=== PATIENT | female | born 1965 | race Caucasian/White ===

== ENCOUNTER → 2024-06-06 14:51 | Outpatient (REF) | payer OTHER, SELFPAY | LOC: EMG 14:51 | PROVIDERS: ATTENDING PHYSICIAN Nurse Practitioner Family | DX: R20.0 Anesthesia of skin (principal) | CPT/HCPCS: 95886; 95909 ==

== ENCOUNTER → 2024-07-02 14:49 | Outpatient (REF) | payer OTHER, SELFPAY | LOC: WDC 14:49 | PROVIDERS: ATTENDING PHYSICIAN Nurse Practitioner Family | DX: Z12.31 Encounter for screening mammogram for malignant neoplasm of breast (principal); D30.02 Benign neoplasm of left kidney | CPT/HCPCS: 76775; 77063; 77067 ==

== ENCOUNTER 2024-07-05 11:27 | Emergency (ER) | payer OTHER, SELFPAY ==
[2024-07-05 11:27] VITALS: BMI 31.8
[2024-07-05 11:29] VITALS: BP 104/65
--- NOTE | 2024-07-05 12:19 | ED.GENMED ---
History of Present Illness
General
Chief Complaint: Abdominal Pain
Source: patient
Exam Limitations: none
Time Seen by Provider: 07/05/24 11:36
Nursing documentation reviewed up to this point in time: agreed with
History of Present Illness
History of Present Illness:
59 y/o F with h/o divertic (uncomplicated)
chronic bloody stool/hemorrhoids
here with LLQ pain that started yesterday gradually worsening throughout the day with bloating, distention and fever (subjective)
tried pepto bismol and clear liquids
nauseated no appetite
slept well
feels fatigued this morning and still has pain LLQ
went to PCP and while in the office she had tenderness in LLQ as well as RUQ and was sent in for w/u
we received message from pcp
no tylenol today
denies vomiting, diarrhea
did have some red blood with BM yesterday but this is typical
no known sick contacts
Past History
Past History
ED Past Medical History: Hypercholesterolemia, Hypothyroidism and Other (diverticulitis)
ED Past Surgical History: None
Social History
Tobacco: Non-smoker
Personal:
Living: with family
Employment: Employed
Course
Orders/Labs/Results
Orders:
Orders
07/05/24 12:15
Urinalysis Reflex To Culture Urgent
07/05/24 12:16
CT Abd/Pel (IV only)-DH only Urgent
Comment:
Reason For Exam: LLQ pain, h/od viertc; fever, bloating RUQ pain
0.9% Sodium Chloride 1000 ml [Nss] 1,000 ml IV BOLUS
Acetaminophen [Tylenol] 650 mg PO NOW STA
Ketorolac [Toradol] 30 mg IV NOW STA
07/05/24 12:25
Complete Blood Count/With Diff Urgent
Comprehensive Metabolic Panel Urgent
Lactic Acid Urgent
Lipase Urgent
07/05/24 14:14
Ciprofloxacin HCl [Cipro] 500 mg PO NOW STA
MetroNIDAZOLE [Flagyl] 500 mg PO NOW STA
07/05/24 14:21
0.9% Sodium Chloride 1000 ml [Nss] 1,000 ml IV BOLUS
Abnormal Lab Results
07/05/24
12:25
RBC 3.87 L 10^6/uL
(4.20-5.40)
Hct 35.4 L %
(37.0-47.0)
Absolute Lymphs (auto) 0.8 L 10^3/uL
(1.2-3.4)
Neutrophils % 80.1 H %
(42.2-75.2)
Lymphocytes % 10.6 L %
(20.5-51.1)
Glucose 113 H mg/dl
(70-99)
Lactic Acid 0.6 L mmol/L
(0.7-2.0)
Total Bilirubin 1.8 H mg/dl
(0.2-1.3)
07/05/24 12:25
07/05/24 12:25
Vital Signs
Initial and Last Documented VS:
Initial Vital Signs
Temp Pulse Resp BP Pulse Ox
37.0 C 88 18 104/65 98
07/05/24 11:29 07/05/24 11:29 07/05/24 11:29 07/05/24 11:29 07/05/24 11:29
Last Documented Vital Signs
Temp Pulse Resp BP Pulse Ox
36.6 C 75 16 92/59 97
07/05/24 14:18 07/05/24 14:18 07/05/24 13:32 07/05/24 14:18 07/05/24 14:18
MDM/Problems Addressed
Differential Diagnosis Includes:
DIVERTIC, SBO, ILEUS, COLITIS
MDM/Problems Addressed:
59 y/o F h/o diveritc
LLQ pain since yesterday, bloating, nausa, chills
does have chronic blood in stool but no more yesterday than normal due to hemorrhids
sent by pcp for LLQ tendrness and RUQ int he office
pt says she was unaware she had RUQ pain
temp 100.3 hhere
no guarding
soft abdomen
no RUQ tendenress for me
labs reassuing, normal wbc, neg lactic
bun normal
ct shows acute uncomplicated divertic
probably had some gas or something in RUQ earlier that was uncomfortable
bp is soft 90s down from 100s
pt normally lives in 100s
will give 1 more liter of IVF and reassess
if stable, d/c home oral abx
ED Attending Note
-
Portions of this chart may have been created with voice recognition software.� Occasional wrong word or��sound alike� substitutions may have occurred due to the inherent limitations of voice recognition software.
Discharge Plan
Departure
Patient Disposition: Home (Routine Discharge)
Date of Disposition: 07/05/24
Time of Disposition: 14:15
Patient with high blood pressure during this ER visit?: No
Condition: Fair
Covid-19: Not Applicable
Discharge Problem:
Diverticulitis
Instructions: Diverticulitis (DC)
Prescriptions:
New
ciprofloxacin HCl 500 mg tablet
500 mg PO BID Qty: 14 0RF
metronidazole 500 mg tablet
500 mg PO TID Qty: 21 0RF
No Action
levothyroxine 125 MCG tablet
125 mcg PO DAILY
escitalopram oxalate 10 MG tablet
1.5 tab PO DAILY
rosuvastatin [Crestor] 40 MG tablet
40 mg PO HS
bupropion HCl 300 MG tablet extended release 24 hr
300 mg PO DAILY
metronidazole 500 MG tablet
500 mg PO TID Qty: 21 0RF
levofloxacin 500 MG tablet
500 mg PO DAILY Qty: 7 0RF
Referrals:
Asif Willard CRNP [Family Provider] - Follow up in 2-3 days
Activity Restrictions/Additional Instructions:
YOUR CAT SCAN SHOWED DIVERTICULITIS
TAKE CIPRO TWICE A DAY FOR 7 DAYS
FLAGYL 3 TIMES A DAY FOR 7 DAYS
CLEAR LIQUID DIET TODAY
TYLENOL FOR FEVER AND PAINS
RETURN FOR: SEVERE PAIN, CONTINUED FEVERS, EPISODES OF BLOODY STOOL OR LARGE VOLUME BLEEDING, OR ANY CONCENRS.
Interventions
Interventions:
*Risk Screen - Suicide Last Done: 07/05/24 11:51
*General Assessment Last Done: 07/05/24 11:33
*Neglect/Abuse Screening Last Done: 07/05/24 11:33
ED- Fall Risk Assessment Last Done: 07/05/24 11:33
*ED COVID-19 Vaccine History Last Done: 07/05/24 11:33
LZ-Dibokg-Iqbwxetuyn Assessment Last Done: 07/05/24 12:32
Discharge Date and Time
Print Language: OMANI
[2024-07-05] MEDS: NSS 1000 IV ×2 (12:29→14:23)
[2024-07-05] MEDS: TYLENOL 650 MG PO (12:29)
[2024-07-05] MEDS: TORADOL 30 MG IV (12:29)
[2024-07-05 12:36] LABS: % Basophils 0.3 % (0-2); % Eosinophils 0.4 % (0-6); % Immature Granulocytes 0.3 % (0-0.5); % Lymphocytes 10.6 % (20.5-51.1); % Monocytes 8.3 % (1.7-9.3); % Neutrophils 80.1 % (42.2-75.2); Absolute Lymphocytes 0.8 10^3/uL (1.2-3.4); Absolute Monocytes 0.6 10^3/uL (0.1-0.6); Absolute Neutrophils 5.9 10^3/uL (1.4-6.5); Hematocrit 35.4 % (37.0-47.0); Mean Corp Hgb Conc. 33.9 g/dL (33.0-37.0); Mean Corpuscular Volume 91.5 fL (81.0-99.0); Mean Platelet Volume 9.3 fL (7.4-10.4); Nucleated Red Blood Cells % 0 %; Platelet Count 176 10^3/uL (130-400); Red Blood Cell Count 3.87 10^6/uL (4.20-5.40); Red Cell Dist. Width 12.1 % (11.5-14.5); White Blood Cell Count 7.4 10^3/uL (4.8-10.8)
[2024-07-05 12:52] LABS: Lactic Acid 0.6 mmol/L (0.7-2.0)
[2024-07-05 12:55] LABS: ALT (SGPT) 25 U/L (0-35); AST (SGOT) 22 U/L (14-36); Albumin 3.9 g/dl (3.5-5.0); Alkaline Phosphatase 69 U/L (38-126); Blood Urea Nitrogen 17 mg/dl (7-17); Calcium 9.4 mg/dl (8.4-10.2); Carbon Dioxide 25 mmol/L (22-30); Chloride 106 mmol/L (98-107); Estimated Creatinine Clearance 76 ml/min; Glucose 113 mg/dl (70-99); Lipase 57 U/L (23-300); Potassium 4.2 mmol/L (3.5-5.1); Sodium 137 mmol/L (135-145); Total Bilirubin 1.8 mg/dl (0.2-1.3); Total Protein 6.6 g/dl (6.3-8.2); eGFR > 60.00
[2024-07-05 13:32] VITALS: BP 97/60
[2024-07-05 14:18] VITALS: BP 92/59
[2024-07-05] MEDS: FLAGYL 500 MG PO (14:22)
[2024-07-05] MEDS: CIPRO 500 MG PO (14:22)
[2024-07-05 15:38] VITALS: BP 91/62
== END 2024-07-05 15:52 | disposition home or self-care (01) ==
LOC: EMR 11:27
PROVIDERS: Physician Assistant; EMERGENCY PHYSICIAN Emergency Medicine; FAMILY PHYSICIAN Nurse Practitioner Family
DX: K57.33 Diverticulitis of large intestine without perforation or abscess with bleeding (principal); E78.00 Pure hypercholesterolemia, unspecified; E03.9 Hypothyroidism, unspecified
CPT/HCPCS: 96374; 96361; 99284; 74177; 80053; 83605; 83690; 85025; Q9967